=== PATIENT | male | born 1965 | race Caucasian/White ===

== ENCOUNTER 2018-08-20 00:18 | Emergency (ER) | payer SELFPAY ==
[~2018-08-20] VITALS: Ht 170.2 cm; Wt 75.0 kg
[2018-08-20 00:22] VITALS: BP 126/93
[2018-08-20] MEDS ORDERED: LISI-662 PO (00:29)
== END 2018-08-20 02:00 | disposition left against medical advice (07) ==
LOC: EMS 00:18
DX: E07.81 Sick-euthyroid syndrome (principal); Y04.0XXA Assault by unarmed brawl or fight, initial encounter; Y93.89 Activity, other specified; Y92.89 Other specified places as the place of occurrence of the external cause; Y99.8 Other external cause status; Z53.21 Procedure and treatment not carried out due to patient leaving prior to being seen by health care provider